=== PATIENT | female | born 1995 | race Caucasian/White ===

== ENCOUNTER 2017-10-19 10:01 | Emergency (ER) | payer OTHER ==
[2017-10-19 10:43] VITALS: BP 118/85
--- NOTE | 2017-10-19 11:23 | UC ---
Upper Extremity HPI - HPI Summary HPI Summary: Patient is a R handed F who presents to the with CC of R ulnar neuropathy from a golfer's elbow flare up x 2 days. She endorses numbness, tingling and temperature changes to the fourth and fifth fingers on the ipsilateral hand. Denies color changes. The neuropathy is intermittent and worse with overuse. She has been using the arm more frequently lifting heavy objects. Hx of JRA and flare ups usually require steroid. She has been seen by Dr. Renteria in rheumatology but last visit was 3 years ago. She has also been seen by Dr. Sheffield. Denies other symptoms. Full ROM without pain. - History of Current Complaint Chief Complaint: UCGeneralIllness Stated Complaint: FINGER NUMBNESS Time Seen by Provider: 10/19/17 10:59 Hx Obtained From: Patient Hx Last Menstrual Period: 10/17/17 ?: No Onset/Duration: Sudden Onset Severity Initially: Moderate Severity Currently: Moderate Pain Intensity: 6 Pain Scale Used: 0-10 Numeric Location Of Pain: Is Discrete @ - R fourth and fifth fingers Aggravating Factor(s): Lifting, Flexion, Extension Alleviating Factor(s): Nothing Associated Signs And Symptoms: Positive: Numbness/Tingling Related History: Dominant Hand Right - Risk Factors Non-Orthopedic Risk Factor: Negative DVT Risk Factors: Negative Septic Arthritis Risk Factor: Negative Compartment Syndrome Risk Factors: Paresthesias - Allergies/Home Medications Allergies/Adverse Reactions: Allergies Allergy/AdvReac Type Severity Reaction Status Date / Time codeine Allergy anaph Verified 10/19/17 10:39 PMH/Surg Hx/FS Hx/Imm Hx Previously Healthy: Yes - Surgical History Surgical History: Yes Surgery Procedure, Year, and Place: 2000 - hernia repair. 2012 Ganglion cyst removal; right wrist - Family History Known Family History: Positive: Hypertension - Social History Occupation: Employed Full-time Lives: With Family Alcohol Use: None Substance Use Type: None Smoking Status (MU): Former Smoker Type: Cigarettes Review of Systems Constitutional: Negative Eyes: Negative Respiratory: Negative Cardiovascular: Negative Motor: Negative Neurovascular: Decreased Sensation Neurological: Negative Psychological: Negative Is Patient Immunocompromised?: No All Other Systems Reviewed And Are Negative: Yes Physical Exam Triage Information Reviewed: Yes Appearance: Well-Appearing, Well-Nourished Vital Signs: Initial Vital Signs Temp 98 F 10/19/17 10:40 Pulse 87 10/19/17 10:40 Resp 16 10/19/17 10:40 BP 118/85 10/19/17 10:40 Pulse Ox 100 10/19/17 10:40 Vital Signs Reviewed: Yes Eye Exam: Normal Eyes: Positive: Conjunctiva Clear Neck exam: Normal Neck: Positive: Supple, No Lymphadenopathy Respiratory Exam: Normal Respiratory: Positive: Chest non-tender, Lungs clear Cardiovascular Exam: Normal Cardiovascular: Positive: RRR, No Murmur Musculoskeletal: Positive: Strength Intact, ROM Intact, No Edema Neurological: Positive: Other: - parethesia in fourth and fifth fingers on the R hand Psychological: Positive: Normal Response To Family Skin Exam: Normal Upper Extremity Course/Dx - Course Course Of Treatment: During the course of treatment, patient is evaluated for JRA flare and medial epicondylitis. She is referred back to her travel registered nurse oncology and Dr. Sheffield in orthopedics. She is given taper of prednisone and note for work. Encouraged golfer's elbow brace. She is Ok with plan and discharge at this time. - Differential Dx/Diagnosis Differential Diagnosis/HQI/PQRI: Strain, Sprain Provider Diagnoses: Medial Epicondylitis Discharge - Discharge Plan Condition: Stable Disposition: HOME Prescriptions: predniSONE TAB* [Deltasone TAB*] 10 mg PO DAILY #21 tab Patient Education Materials: Tennis Elbow (ED) Forms: *Work Release Referrals: Michael Renteria MD [Medical Doctor] - No Primary Care Phys,NOPCP [Primary Care Provider] - Edwin Ramos MD [Medical Doctor] - Jodie Sheffield MD [Medical Doctor] - Additional Instructions: Medial epicondylitis I have given you information - you have GOLFER'S ELBOW most likely from the JRA with an acute flare up from recent overuse. Prednisone Taper: Take 4 tabs on day 1 and 2, 3 tabs on day 3 and 4, 2 tabs on day 5 and 6 and 1 tab until gone Follow up with Dr. Ramos or Dr. Renteria and Dr. Sheffield
== END 2017-10-19 11:41 | disposition home or self-care (01) ==
LOC: UCEAST 10:01
DX: M77.01 Medial epicondylitis, right elbow (principal); Z88.5 Allergy status to narcotic agent; Z87.891 Personal history of nicotine dependence
CPT/HCPCS: 99211; G0463

== ENCOUNTER 2017-12-29 10:19 | Emergency (ER) | payer OTHER ==
[2017-12-29 10:29] VITALS: BP 131/82
--- NOTE | 2017-12-29 12:08 | UC ---
UC General HPI - HPI Summary HPI Summary: Patient presents with dad and step mom complaining of left sided numbness and tingling. States that last night before bed the left side of her face felt numb but she ignored it and went to sleep. Upon waking this morning the left facial numbness was persistent and she also noticed some numbness and tingling in her left arm and left leg. She has some mild numbness of the right hand is now resolved. She has been having 2 weeks of headaches, dizziness and significant nausea and vomiting daily. She saw her PCP who 1 week ago put her on the NuvaRing to determine if she had a hormonal imbalance. She is also concerned about pseudotumor and possibly Lyme. She denies any possibility of . No urinary symptoms. No diagnosed history of anxiety. She has a long standing history of rheumatoid arthritis diagnosed as a toddler. Not currently on any daily medications. Takes meloxicam from time to time. Is also currently being evaluated by Dr. Quezada for a left eye blurry vision. 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 - History of Current Complaint Chief Complaint: UCUpperExtremity Stated Complaint: NUMBNESS ON LEFT SIDE OF BODY Time Seen by Provider: 12/29/17 11:24 Hx Obtained From: Patient, Family/Twister Frame Tender - DAD AND STEPMOM Hx Last Menstrual Period: 12/19/17 Onset/Duration: Sudden Onset, Lasting Days - 1 DAY, Still Present Timing: Constant Onset Severity: Moderate Current Severity: Moderate Pain Intensity: 0 - Allergy/Home Medications Allergies/Adverse Reactions: Allergies Allergy/AdvReac Type Severity Reaction Status Date / Time codeine Allergy anaph Verified 10/19/17 10:39 PMH/Surg Hx/FS Hx/Imm Hx - Additional Past Medical History Additional PMH: RHEUMATOID ARTHRITIS - Surgical History Surgical History: Yes Surgery Procedure, Year, and Place: 2000 - hernia repair. 2012 Ganglion cyst removal; right wrist - Family History Known Family History: Positive: Hypertension, Diabetes - Social History Alcohol Use: None Substance Use Type: None Smoking Status (MU): Former Smoker Type: Cigarettes Review of Systems Constitutional: Negative Eyes: Blurred Vision ENT: Negative Respiratory: Negative Cardiovascular: Negative Gastrointestinal: Vomiting, Nausea Genitourinary: Negative Neurological: Headache Psychological: Anxious All Other Systems Reviewed And Are Negative: Yes Physical Exam Triage Information Reviewed: Yes Appearance: Well-Appearing, No Pain Distress, Well-Nourished Vital Signs: Initial Vital Signs Temp 99.8 F 12/29/17 10:23 Pulse 126 12/29/17 10:23 Resp 18 12/29/17 10:23 BP 131/82 12/29/17 10:23 Pulse Ox 100 12/29/17 10:23 Vital Signs Reviewed: Yes Eyes: Positive: Conjunctiva Clear, Other: - PERRL, EOMI. Negative: Discharge ENT: Positive: Hearing grossly normal, Pharynx normal, TMs normal Neck: Positive: Supple, Nontender, No Lymphadenopathy Respiratory Exam: Normal Cardiovascular: Positive: Tachycardia Abdomen Description: Positive: Nontender, Soft Musculoskeletal: Positive: No Edema Neurological: Positive: Alert, Other: - CN II-XII GROSSLY INTACT BILATERALLY. NEG PRONATOR DRIFT. FINGER TO NOSE INTACT BILATERALLY. HEEL TO MELARA INTACT BILATERALLY. RAPID ALTERNATING MVMTS INTACT. 5/5 STRENGTH Psychological: Positive: Normal Response To Family, Age Appropriate Behavior, Other: - ANXIOUS Skin: Negative: rashes Diagnostics - EKG Cardiac Rate: Tachycardia - 113BPM Cardiac Rhythm: Sinus: Normal Ectopy: None ST Segment: Normal Course/Dx - Course Course Of Treatment: Unclear etiology of patient's symptoms today. CVA is possible but certainly suspicion is low. Given patient's level of anxiety it is also possible that her symptoms are related to this however a more thorough workup is warranted. She is agreeable to transfer to the [facility] via private car. - Differential Dx - Multi-Symptom Provider Diagnoses: 1. PARESTHESIAS. 2. TACHYCARDIA - Physician Notifications Discussed Patient Care With: Jamison Moran - TO [facility] BY PRIVATE CAR Time Discussed With Above Provider: 12:14 Instructed by Provider To: MD Will See In ED Discharge - Sign-Out/Discharge Documenting (check all that apply): Discharge - Discharge Plan Condition: Stable Disposition: HOME Patient Education Materials: Paresthesia (ED), Tachycardia (ED) Referrals: Eunice Chiu, SPINE SPECIALIST [Nurse Practitioner] - Additional Instructions: Unclear etiology of your symptoms today. Go directly to the [facility] from here for further evaluation. - Billing Disposition and Condition Condition: STABLE Disposition: HOME
== END 2017-12-29 12:22 | disposition home or self-care (01) ==
LOC: UCEAST 10:19
DX: R20.2 Paresthesia of skin (principal); R00.0 Tachycardia, unspecified; M06.9 Rheumatoid arthritis, unspecified; H53.8 Other visual disturbances; R11.2 Nausea with vomiting, unspecified; R51 Headache; F41.9 Anxiety disorder, unspecified; Z88.5 Allergy status to narcotic agent; Z87.891 Personal history of nicotine dependence
CPT/HCPCS: 93005; 99211; G0463

== ENCOUNTER 2017-12-29 12:46 | Emergency (ER) | payer OTHER ==
--- NOTE | 2017-12-29 14:18 | ED ---
Neurological HPI - HPI Summary HPI Summary: Patient is a 22-year-old female who presents to emergency department for evaluation of paresthesias to the left side of her body that started last evening. Patient states he for she went to sleep she noticed decreased sensation to the left side of her face and hand. She had no associated symptoms of headache at time, visual disturbances. Today she still has some mild sensation of paresthesias to left hand and left face. Past medical history of juvenile rheumatoid arthritis, asthma, iron deficiency. Patient also notes she is currently being worked up for nausea and vomiting. Denies bites or rashes. Patient also notes that she is following with her ship mate for a dilated left pupil that occurs when she wakes up. Symptoms are moderate in severity. No current modifying factors. - History of Current Complaint Chief Complaint: EDNeurologicalDeficit Stated Complaint: PARTIAL NUMBNESS LT SIDE Time Seen by Provider: 12/29/17 13:57 Hx Obtained From: Patient Hx Last Menstrual Period: 12/19/17 Pain Intensity: 0 - Allergy/Home Medications Allergies/Adverse Reactions: Allergies Allergy/AdvReac Type Severity Reaction Status Date / Time codeine Allergy anaph Verified 12/29/17 14:02 Home Medications: Home Medications Nuva Ring 1 vag ring VAGINAL MONTHLY 12/29/17 [History Confirmed 12/29/17] PMH/Surg Hx/FS Hx/Imm Hx Previously Healthy: Yes Endocrine/Hematology History: Denies: Hx Diabetes, Hx Thyroid Disease Cardiovascular History: Denies: Hx Hypertension Respiratory History: Denies: Hx Asthma, Hx Chronic Obstructive Pulmonary Disease (COPD) GI History: Denies: Hx Ulcer - Cancer History Cancer Type, Location and Year: arthritis - Surgical History Surgery Procedure, Year, and Place: 2000 - hernia repair. 2012 Ganglion cyst removal; right wrist Infectious Disease History: No Infectious Disease History: Denies: Hx Hepatitis, Hx Human Immunodeficiency Virus (HIV), History Other Infectious Disease, Traveled Outside the [place] in Last 30 Days - Family History Known Family History: Positive: Hypertension, Diabetes - Social History Occupation: Student Lives: Dormitory/Roommates Alcohol Use: None Substance Use Type: Reports: None Smoking Status (MU): Former Smoker Type: Cigarettes Review of Systems Constitutional: Negative Negative: Fever, Chills Negative: Photophobia, Blurred Vision ENT: Negative Cardiovascular: Negative Negative: Palpitations, Chest Pain Respiratory: Negative Negative: Shortness Of Breath, Cough Positive: Vomiting, Nausea Genitourinary: Negative Musculoskeletal: Negative Skin: Negative Negative: Rash Positive: Paresthesia - left hand and left side of face All Other Systems Reviewed And Are Negative: Yes Physical Exam Triage Information Reviewed: Yes Vital Signs On Initial Exam: Initial Vitals Temp Pulse Resp BP Pulse Ox 97.8 F 111 20 147/77 99 12/29/17 12:54 12/29/17 12:54 12/29/17 12:54 12/29/17 12:54 12/29/17 12:54 Vital Signs Reviewed: Yes Appearance: Positive: Well-Appearing - Patient sitting up in bed in no acute distress. Talkative. Family member present. Skin: Positive: Warm, Dry Head/Face: Positive: Normal Head/Face Inspection Eyes: Positive: Normal, EOMI, SARANYA ENT: Positive: Normal ENT inspection, Pharynx normal, TMs normal. Negative: Tonsillar swelling, Tonsillar exudate Neck: Positive: Supple Respiratory/Lung Sounds: Positive: Clear to Auscultation, Breath Sounds Present Cardiovascular: Positive: Normal, RRR Abdomen Description: Positive: Nontender, Soft Neurological: Positive: Normal, CN Intact II-III, Speech Normal, Other - Normal facial symmetry. Slight decrease in sensation to the left forehead. 5 out of 5 strength bilateral upper and lower extremities.. Negative: Receptive Aphasia , Expressive Aphasia, Disoriented, EOM Palsy, Facial Droop, Focal Deficit @, Slurred Speech, Ataxic Gait, Facial Symmetry Diagnostics - Vital Signs Vital Signs Temp Pulse Resp BP Pulse Ox 12/29/17 12:54 97.8 F 111 20 147/77 99 - Laboratory Result Diagrams: 12/29/17 14:30 12/29/17 14:30 Lab Statement: Any lab studies that have been ordered have been reviewed, and results considered in the medical decision making process. Course/Dx - Course Course Of Treatment: Patient presenting for evaluation of mild paresthesias to left side of face and hand that started last evening. She is afebrile. Heart rate mildly elevated. She is no focal neurological deficits on exam. Will obtain basic labs and brain CT for further evaluation. Labs are unremarkable. Brain CT is negative for acute findings, reading per radiology. Results were discussed with pt. She appears very anxious and has numerous questions. Suspect a component of underlying stress/anxiety. Recommend pt. call her PCP and neurology today to schedule f.u apts. To return to ER if symptoms change or worsen. Pt. understands and agrees with plan. - Differential Dx Differential Diagnoses Neuro: Positive: Anxiety, Cephalgia, Headache, Intracranial Bleed, Migraine - Diagnoses Provider Diagnoses: Paresthesia Discharge - Sign-Out/Discharge Documenting (check all that apply): Discharge - Discharge Plan Condition: Good Disposition: HOME Patient Education Materials: Paresthesia (ED) Forms: *Work Release Referrals: Eunice Chiu NP [Primary Care Provider] - Jeremy Cabral MD [Medical Doctor] - Additional Instructions: Schedule a follow up appointment with your PCP and neurology Return to ER if symptoms change or worsen - Billing Disposition and Condition Condition: GOOD Disposition: HOME
--- NOTE | 2017-12-29 14:37 | RAD ---
INDICATION: Paresthesias. COMPARISON: There are no prior studies available for comparison. TECHNIQUE: Contiguous axial sections of the brain were obtained from the skull base to the vertex without contrast. FINDINGS: The ventricles, cisterns and sulci are within normal limits. No significant focal abnormality or mass effect is seen. There is no evidence for hemorrhage. No significant focal osseous abnormality is seen. The visualized portion of the paranasal sinuses and mastoid air cells appear clear. IMPRESSION: NO EVIDENCE FOR ACUTE INTRACRANIAL ABNORMALITY.
[2017-12-29 14:51] LABS: ABS Basophils 0 10^3/ul (0-0.2); ABS Eosinophils 0 10^3/ul (0-0.6); ABS Lymphocytes 0.7 10^3/ul (1.0-4.8); ABS Monocytes 0.3 10^3/ul (0-0.8); ABS Neutrophils 3.3 10^3/ul (1.5-7.7); ABS Nucleated RBC 0 10^3/ul; Eosinophil % 0.2 % (0-6); Hematocrit 42 % (35-47); Hemoglobin 14.4 g/dl (12.0-16.0); Lymphocyte % 16.9 % (25-47); Mean Corpuscular HGB Conc 35 g/dl (31-36); Mean Corpuscular Hemoglobin 31 pg (27-31); Mean Corpuscular Volume 88 fL (80-97); Mean Platelet Volume 8.9 um3 (7.4-10.4); Nucleated Red Blood Cells % 0.1; Platelet Count 198 10^3/ul (150-450); Red Blood Count 4.71 10^6/ul (4.0-5.4); Red Cell Distribution Width 13 % (10.5-15); White Blood Count 4.4 10^3/ul (3.5-10.8)
[2017-12-29 15:10] LABS: EGFR Non-African American 97.3 (>60)
[2017-12-29 15:44] VITALS: BP 124/76
== END 2017-12-29 15:43 | disposition home or self-care (01) ==
LOC: ED 12:46
DX: R20.2 Paresthesia of skin (principal); R11.2 Nausea with vomiting, unspecified; Z87.891 Personal history of nicotine dependence
CPT/HCPCS: 36415; 70450; 80053; 83735; 84702; 85025; 86617; 99283

== ENCOUNTER 2018-04-27 15:59 | Emergency (ER) | payer OTHER ==
--- NOTE | 2018-04-27 16:15 | UC ---
Lower Extremity/Ankle HPI - HPI Summary HPI Summary: The pt is a 22 y/o female with a PMHX of juvenile RA presenting to c/o intermittent bilateral UE and LE pain since 1 week ago. She notes swelling in the UE and LE , coldness to touch and undiagnosed panic attacks (a side effect of Prednisone medication). She denies fevers, and chills. Her Software Technical Lead, Dr. Ramos is in [place] and the pt has an appointment with him on 05/05/2018. This is scribe Josefa Wood documenting for attending Dr. Pa. I, Dr. Pa , personally performed the services described in this documentation as scribed in my presence and it is both accurate and complete. - History of Current Complaint Stated Complaint: HAND AND LEG PAIN Time Seen by Provider: 04/27/18 16:05 Hx Obtained From: Patient Hx Last Menstrual Period: 12/19/17 Onset/Duration: Lasting Weeks - 1 week, Still Present - Allergies/Home Medications Allergies/Adverse Reactions: Allergies Allergy/AdvReac Type Severity Reaction Status Date / Time codeine Allergy Anaphylatic Verified 04/27/18 16:15 Shock PMH/Surg Hx/FS Hx/Imm Hx Previously Healthy: No - PMhx of Juvenile RA - Surgical History Surgical History: Yes Surgery Procedure, Year, and Place: 2000 - hernia repair. 2012 Ganglion cyst removal; right wrist - Family History Known Family History: Positive: Hypertension, Diabetes - Social History Occupation: Unemployed Alcohol Use: None Substance Use Type: None Smoking Status (MU): Former Smoker Type: Cigarettes Review of Systems Constitutional: Negative - Fevers, chills Skin: Other - Positive : Coldness to touch Musculoskeletal: Edema - UE And LE, Other: - Positive: Pain in the UE and LE Neurological: Other - Positive: Undiagnosed panic attacks (side effect of Prednisone) All Other Systems Reviewed And Are Negative: Yes Physical Exam - Summary Physical Exam Summary: General: well-appearing, no pain distress Skin: warm, color reflects adequate perfusion, dry Head: normal Eyes: EOMI, SARANYA ENT: normal Neck: supple, nontender Respiratory: CTA, breath sounds present Cardiovascular: RRR Abdomen: soft, nontender Bowel: present Musculoskeletal: Swelling on both elbows, worse on the R ; strength/ROM intact , Normal capillary refill , Normal pulses, Normal sensation Neurological: sensory/motor intact, A&O x3 Psychological: affect/mood appropriate Triage Information Reviewed: Yes Vital Signs: Vital Signs: Temp Pulse Resp BP Pulse Ox 98.9 F 95 16 117/75 99 04/27/18 16:15 04/27/18 16:15 04/27/18 16:15 04/27/18 16:15 04/27/18 16:15 Vital Signs Reviewed: Yes Lower Extremity Course/Dx - Course Course Of Treatment: APPEARS TO BE A JRA EXACERBATION. PATIENT HAS F/U SCHEDULED WITH DR RAMOS NEXT WEEK. RECHECK SOONER IF WORSE. - Differential Dx/Diagnosis Provider Diagnoses: B/L ELBOW AND KNEE PAIN. JUVENILE RHEUMATOID ARTHRITIS. PARESTHESIAS Discharge - Sign-Out/Discharge Documenting (check all that apply): Patient Departure - Discharge Plan Condition: Stable Disposition: HOME Prescriptions: predniSONE TAB* [Deltasone 10 MG TAB*] 10 mg PO DAILY #24 tab Patient Education Materials: Juvenile Arthritis (ED), Paresthesia (ED) Referrals: Eunice Chiu NP [Primary Care Provider] - Edwin Ramos MD [Medical Doctor] - Additional Instructions: FOLLOW UP WITH DR RAMOS. GET RECHECKED FOR ANY WORSENING OF YOUR CONDITION OR QUESTIONS OR CONCERNS. - Billing Disposition and Condition Condition: STABLE Disposition: Home
[2018-04-27 16:18] VITALS: BP 117/75
== END 2018-04-27 16:25 | disposition home or self-care (01) ==
LOC: UCEAST 15:59
DX: M25.522 Pain in left elbow (principal); M25.521 Pain in right elbow; M25.562 Pain in left knee; M25.561 Pain in right knee; M08.00 Unspecified juvenile rheumatoid arthritis of unspecified site; Z88.5 Allergy status to narcotic agent; Z87.891 Personal history of nicotine dependence
CPT/HCPCS: 99212; G0463

== ENCOUNTER 2018-09-11 12:51 | Emergency (ER) | payer OTHER ==
--- OUTSIDE RECORDS SUMMARY | 2018-09-11 12:56 | XMS REPORT | Continuity of Care Document ---
:1995 External Reference #:[id number] Author Name Jennifer Guajardo Care Team Providers Name Role Phone Patient's Choice Primary Care Physician Unavailable Payers Type Date Identification Numbers Payment Provider Subscriber Policy Number: [id number] [employer] Don Delacruz PayID: [id number] [place] [address] Advance Directives Description No Information Available Problems Description No Information Family History Date Family Member(s) Problem(s) Comments General No Current Problems Father Heart Murmur Mother Psoriasis Social History Type Date Description Comments Sex Unknown Lives With 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 for 1 week then 1 twice daily ongoing Meloxicam 08/09 Active Tablets 7.5mg 30tab Take one M08.421 s capsule/tablet Richard, daily by mouth M.D. as needed for pain/ inflammation Prednisone 05/05 Active Tablets 10mg 30tab Take one s capsule/tablet Richard, daily by mouth M.D. as needed for a flare of Ra Proair HFA Active Aerosol 108(90Bas 1unit 2 puffs po q4h Unknown /0000 e) mcg/ac s prn Peppermint Oil Active Oil as needed Unknown Enbrel 02/22 Hx Solution 50mg/ml 3.92u inject M08.421 Auto-Inje nits subcutaneously Richard, - ct 50mg every week M.D. 08/09 8Enbrel 02/17 Hx Solution 50mg/ml 3.92u inject M08.421 Edwin Auto-Inje nits subcutaneously Richard, - ct 50mg every week M.D. 02/22 Leflunomide Hx Tablets 20mg 30tab 1 po qd Unknown s - 02/17 Meloxicam Hx Tablets 7.5mg 30tab 1 po qd Unknown s - 02/17 Medications Administered in Office Medication Date Status Form Strength Qnty SIG Indications Ordering Provider PPD Administered Injection Edwin Ramos M.D. Celestone 3 mg Administered Injection Madie and 3mg 012 Kathia bishop M.D. Celestone 3 mg Administered Injection Madie and 3mg 012 Kathia bishop M.D. Celestone 3 mg Administered Injection Madie and 3mg 012 Kathia bishop M.D. Celestone 3 mg Administered Injection Madie and 3mg 012 Kathia bishop M.D. Immunizations Description No Information Available Vital Signs Date Vital Result Comment 08/09/2018 3:48pm Height 62 inches 5'2" Weight 124.00 lb Heart Rate 88 /min BP Systolic 108 mmHg BP Diastolic 74 mmHg Pain Level 1 O2 % BldC Oximetry 98 % BMI (Body Mass Index) 22.7 kg/m2 05/05/2018 3:43pm Height 62 inches 5'2" Weight 118.00 lb Heart Rate 77 /min BP Systolic Sitting 108 mmHg BP Diastolic Sitting 71 mmHg Respiratory Rate 14 /min Pain Level 5 BMI (Body Mass Index) 21.6 kg/m2 02/17/2018 1:59pm Height 62 inches 5'2" Weight 117.12 lb Heart Rate 84 /min BP Systolic Sitting 108 mmHg BP Diastolic Sitting 78 mmHg Respiratory Rate 14 /min Pain Level 0 BMI (Body Mass Index) 21.4 kg/m2 10/22/2017 2:47pm Height 62 inches 5'2" Weight 115.00 lb Heart Rate 80 /min BP Systolic 110 mmHg BP Diastolic 64 mmHg Respiratory Rate 16 /min Body Temperature 98.7 F Pain Level 7 BMI (Body Mass Index) 21.0 kg/m2 12/18/2011 3:13pm Height 62 inches 5'2" Heart Rate 68 /min BP Systolic Sitting 114 mmHg BP Diastolic Sitting 70 mmHg Blood Pressure Percentile 0 % Height Percentile 19 % 11/18/2011 2:09pm Height 62 inches 5'2" Weight 108.50 lb Heart Rate 70 /min BP Systolic Sitting 114 mmHg BP Diastolic Sitting 71 mmHg BMI (Body Mass Index) 19.8 kg/m2 Blood Pressure Percentile 0 % Height Percentile 19 % Weight Percentile 19th Results Description No Information Available Procedures Date Code Description Status 10/20/2011 81560 Rad Exam; Ankle Comp Completed 10/20/2011 23499 Rad Exam; Ankle Comp Completed 09/30/2011 48139 Inject/Drain Joint/Bursa Intermediate W/O US Completed 09/16/2011 53798 Rad Exam; Elbow, Limited Completed 09/16/2011 79036 Rad Exam; Elbow, Limited Completed 09/16/201111338 Inject/Drain Joint/Bursa Intermediate W/O US Completed Encounters Type Date Location Provider Dx Diagnosis Office Visit 08/09/2018 Rheumatology Gopi Wagner8.421 Pauciarticular 3: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 juvenile rheumatoid arthritis, right elbow Z79.899 Other intermediate school teacher (current) drug therapy Office Visit 02/17/2018 Rheumatology Edwin Nguyễn8.421 Pauciarticular 2:00p Services Of Brian Ramos M.D. 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 Pauciarticular Office Visit 10/20/2011 Orthopedic Driss 714.32 Rheumatoid Arthritis 3:30p Services Of Jared Szymanski C.M.A. Pauciarticular Office Visit 09/30/2011 Orthopedic Madie 714.32 Rheumatoid Arthritis 8:00a Services Of Linnette Johnson C.M.A., M.D. Pauciarticular 727.09 Synovitis & Tenosynovitis Other 719.02 Effusion Joint Upper Arm Office 09/16/2011 Orthopedic Madie 714.32 Rheumatoid Visit 11:00a Services Of Jared Johnson Arthritis Juvenile C.M.A. Pauciarticular 727.09 Synovitis & Tenosynovitis Other Plan of Treatment Future Appointment(s):09/21/2018 3:40 pm - Edwin Ramos M.D. at [facility]08/09/2018 - Edwin Ramos M.D.M08.421 Pauciarticular juvenile rheumatoid arthritis, right elbowNew Medication:Sulfasalazine 500 mg - take one capsule/tablet daily by mouth for 1 week then 1 twice daily ongoingMeloxicam 7.5 mg - Take one capsule/tablet daily by mouth as needed for pain/ inflammationNew Labs:Erythrocyte Sed Rate, Ordered: 08/09/18C Reactive Protein, Ordered: 08/09/18ollow up:Follow up in 6 weeks or sooner if gupcxfH35.899 Other intermediate school teacher (current) drug therapyNew Labs:CBC Auto Diff, Ordered: Comp Metabolic Panel, Ordered: 08/09/18M25.421 Effusion, right elbow
[2018-09-11 13:01] VITALS: BP 107/68
--- NOTE | 2018-09-11 13:16 | UC ---
Dental HPI - HPI Summary HPI Summary: 23-year-old woman comes to clinic today with a chief complaint of tooth pain and left facial swelling. The left molar tooth pain is been going on for about a week and she's recently noticed some swelling on the left side of the face. Been feeling slightly ill is wondering if she has a dental infection. She did have some left ear pain but that's better now. No rhinorrhea no difficulty swallowing no cough or chest congestion. - History of Current Complaint Chief Complaint: UCDentalProblem Stated Complaint: DENTAL COMPLAINT Time Seen by Provider: 09/11/18 13:08 Hx Last Menstrual Period: 075168 Pain Intensity: 4 - Allergies/Home Medications Allergies/Adverse Reactions: Allergies Allergy/AdvReac Type Severity Reaction Status Date / Time codeine Allergy Anaphylatic Verified 09/11/18 13:01 Shock Home Medications: Home Medications Meloxicam(NF) [Mobic(NF)] 15 mg PO DAILY PRN 09/11/18 [History Confirmed ] PMH/Surg Hx/FS Hx/Imm Hx Previously Healthy: Yes - Surgical History Surgical History: Yes Surgery Procedure, Year, and Place: 2000 - hernia repair. 2012 Ganglion cyst removal; right wrist - Family History Known Family History: Positive: Hypertension, Diabetes - Social History Alcohol Use: Occasionally Substance Use Type: Marijuana Substance Use Comment - Amount & Last Used: daily Smoking Status (MU): Heavy Every Day Tobacco Smoker Type: Cigarettes Review of Systems All Other Systems Reviewed And Are Negative: Yes Constitutional: Positive: Negative Skin: Positive: Negative Eyes: Positive: Negative ENT: Positive: Dental Pain, Ear Ache. Negative: Sinus Congestion Respiratory: Positive: Negative Cardiovascular: Positive: Negative Gastrointestinal: Positive: Negative Motor: Positive: Negative Neurovascular: Positive: Negative Musculoskeletal: Positive: Negative Neurological: Positive: Negative Psychological: Positive: Negative Is Patient Immunocompromised?: No Physical Exam Triage Information Reviewed: Yes Appearance: Well-Appearing, No Pain Distress, Well-Nourished Vital Signs: Initial Vital Signs Temp 98.2 F 09/11/18 12:57 Pulse 98 09/11/18 12:57 Resp 16 09/11/18 12:57 BP 107/68 09/11/18 12:57 Pulse Ox 99 09/11/18 12:57 Vital Signs Reviewed: Yes Eye Exam: Normal Eyes: Positive: Conjunctiva Clear ENT: Positive: Pharynx normal, TMs normal. Negative: Nasal congestion, Nasal drainage Dental: Positive: Other: - LEFT MOLAR CAVITY Neck exam: Normal Neck: Positive: Supple, Other: - MINIMAL SWELLING BELOW ANGLE OF LEFT JAW Respiratory: Positive: Lungs clear, Normal breath sounds, No respiratory distress Cardiovascular: Positive: RRR Musculoskeletal Exam: Normal Musculoskeletal: Positive: Strength Intact, ROM Intact Neurological Exam: Normal Neurological: Positive: Alert, Muscle Tone Normal Psychological Exam: Normal Psychological: Positive: Age Appropriate Behavior Skin Exam: Normal Dental Complaint Course/Dx - Differential Dx/Diagnosis Provider Diagnosis: Tooth ache Discharge - Sign-Out/Discharge Documenting (check all that apply): Patient Departure All imaging exams completed and their final reports reviewed: No Studies - Discharge Plan Condition: Stable Disposition: HOME Prescriptions: Amoxicillin PO (*) [Amoxicillin 875 MG (*)] 875 mg PO BID #20 tab Patient Education Materials: Toothache (ED) Referrals: Eunice Chiu, [employer] [Primary Care Provider] - Additional Instructions: FOLLOW UP WITH YOUR DENTIST OR PRIMARY CARE DOCTOR IF NOT COMPLETELY IMPROVED. GET RECHECKED FOR ANY WORSENING OF YOUR CONDITION OR QUESTIONS OR CONCERNS. - Billing Disposition and Condition Condition: STABLE Disposition: Home
== END 2018-09-11 13:23 | disposition home or self-care (01) ==
LOC: UCEAST 12:51
DX: K08.89 Other specified disorders of teeth and supporting structures (principal); F17.210 Nicotine dependence, cigarettes, uncomplicated; Z88.5 Allergy status to narcotic agent
CPT/HCPCS: 99212; G0463

== ENCOUNTER 2019-03-31 09:25 | Emergency (ER) | payer OTHER ==
[2019-03-31 09:39] VITALS: BP 101/61
--- NOTE | 2019-03-31 10:20 | UC ---
Throat Pain/Nasal Alek HPI - HPI Summary HPI Summary: 23-year-old female who has had a swollen left tonsillar node since January and states that today her left ear started hurting. She also states that she has occasional mild discomfort on her left lower molars. - History of Current Complaint Chief Complaint: UCGeneralIllness Stated Complaint: SORE THROAT, AND EAR ACHE Time Seen by Provider: 03/31/19 10:19 Hx Obtained From: Patient Hx Last Menstrual Period: 03/14/19 ?: No Onset/Duration: Gradual Onset, Lasting Weeks - Since January the patient has had waxing and waning of left tonsillar lymph node enlargement. No recent Scratches. No recent illness. Severity: Mild Pain Intensity: 6 Cough: None Associated Signs & Symptoms: Positive: Negative Related History: Seasonal Allergies - Allergies/Home Medications Allergies/Adverse Reactions: Allergies Allergy/AdvReac Type Severity Reaction Status Date / Time codeine Allergy Anaphylatic Verified 03/31/19 09:40 Shock Home Medications: Home Medications NK [No Home Medications Reported] 03/31/19 [History Confirmed 03/31/19] PMH/Surg Hx/FS Hx/Imm Hx Previously Healthy: Yes - Surgical History Surgical History: Yes Surgery Procedure, Year, and Place: 2000 - hernia repair. 2012 Ganglion cyst removal; right wrist - Family History Known Family History: Positive: Hypertension, Diabetes - Social History Alcohol Use: None Substance Use Type: Marijuana Substance Use Comment - Amount & Last Used: daily Smoking Status (MU): Former Smoker Type: Cigarettes Review of Systems All Other Systems Reviewed And Are Negative: Yes ENT: Positive: Ear Ache, Other - Patient states waxing and waning left tonsillar lymph node enlargement since January of this year. No recent illness. She does have seasonal allergies. She states today she had a mild left earache so she thought that was related. She has also had some intermittent left lower dental pain. Is Patient Immunocompromised?: No Physical Exam Triage Information Reviewed: Yes Appearance: Well-Appearing, No Pain Distress, Well-Nourished Vital Signs: Initial Vital Signs Temp 98 F 03/31/19 09:37 Pulse 70 03/31/19 09:37 Resp 16 03/31/19 09:37 BP 101/61 03/31/19 09:37 Pulse Ox 100 03/31/19 09:37 Vital Signs Reviewed: Yes Eyes: Positive: Conjunctiva Clear ENT: Positive: Hearing grossly normal, Pharynx normal, TMs normal, Uvula midline Dental Exam: Normal Dental: Positive: Other: - Gumline is pink, no evidence of abscess, teeth are in good condition. Neck: Positive: Supple, Nontender, No Lymphadenopathy - No lymph node enlargement today. Respiratory: Positive: Lungs clear, Normal breath sounds, No respiratory distress, No accessory muscle use Cardiovascular: Positive: RRR, No Murmur, Pulses Normal, Brisk Capillary Refill Abdomen Description: Positive: Nontender, No Organomegaly, Soft, Other: - No inguinal lymphadenopathy.. Negative: CVA Tenderness (R), CVA Tenderness (L) Bowel Sounds: Positive: Present Musculoskeletal Exam: Normal Neurological Exam: Normal Psychological Exam: Normal Skin Exam: Normal Throat Pain/Nasal Course/Dx - Course Course Of Treatment: Patient is comfortable here. Ear exam was normal as well as dental exam. I advised her to follow-up with the dentist if she continues to have the left lower jaw pain. At this point time I don't feel there is a need for antibiotics. - Differential Dx/Diagnosis Provider Diagnosis: Pain, dental Discharge - Sign-Out/Discharge Documenting (check all that apply): Patient Departure All imaging exams completed and their final reports reviewed: No Studies - Discharge Plan Condition: Good Disposition: HOME Patient Education Materials: Lymphadenopathy (ED) Referrals: Eunice Chiu SHEEP HERDER [Primary Care Provider] - Additional Instructions: If you have any worsening of the dental discomfort follow-up with your dentist for further care. - Billing Disposition and Condition Condition: GOOD Disposition: Home - Attestation Statements Provider Attestation: I was available for consult. This patient was seen by the HALIE. The patient was not presented to, seen by, or examined by me. -Regi
== END 2019-03-31 10:35 | disposition home or self-care (01) ==
LOC: UCEAST 09:25
DX: K08.89 Other specified disorders of teeth and supporting structures (principal); Z88.5 Allergy status to narcotic agent; Z87.891 Personal history of nicotine dependence
CPT/HCPCS: 99211; G0463

== ENCOUNTER 2020-01-07 13:27 | Emergency (ER) | payer OTHER ==
[2020-01-07 13:35] VITALS: BP 125/67
--- OUTSIDE RECORDS SUMMARY | 2020-01-07 13:35 | XMS REPORT | Continuity of Care Document ---
:1995 External Reference #:[id number] Author Name Zeke Finley MD [facility] Address [address] [place] [address] Problems Active Problems Provider Date Adult health examination Onset: 07/23/2016 Rheumatoid arthritis Onset: 03/02/2018 Asthma Jacklyn Kim DO Onset: 10/25/2019 Tobacco dependence syndrome Onset: 09/01/2018 Iritis Jacklyn Kim DO Onset: 10/25/2019 Anxiety Onset: 01/07/2018 Social History Type Date Description Comments Sex Unknown Tobacco Use Start: Unknown Heavy tobacco smoker (more than 10 cigarettes/day) Smoking Status Reviewed: 10/25/19 Heavy tobacco smoker (more than 10 cigarettes/day) Allergies, Adverse Reactions, Alerts Active Allergies Reaction Severity Comments Date Codeine Shock Severe 05/20/2019 Medications Active Medications SIG Qnty Indications Ordering Date Provider Proventil HFA Take 2 Puffs By 6.7Inhaler Jenae Xie, 12/02/2019 Mouth Every 4 108(90Base) mcg/Act Hours as Needed Aerosol Flovent HFA 2 puffs twice 13units Jenae Xie, 07/12/2018 daily inhalation 110mcg/Act Aerosol Meloxicam 1 Oral Unknown 12/22/2017 15mg Tablets Amoxicillin 1 by mouth three Unknown 500mg times a day Tablets Levalbuterol HCL Unknown 0.31mg/3ML Nebulizer Medications Administered in Office Medication SIG Qnty Indications Ordering Provider Date Meningococcal Conjugate Vaccine Unknown 02/13/2015 (Menveo) Injection Meningococcal Conjugate Vaccine Unknown 05/21/2010 (Menveo) Injection DTaP Vaccine Younger Than 7 Unknown 02/18/1999 (Infanrix) Injection DTaP Vaccine Younger Than 7 Unknown 01/24/1995 (Infanrix) Injection DTaP Vaccine Younger Than 7 Unknown 1994 (Infanrix) Injection DTaP Vaccine Younger Than 7 Unknown 1994 (Infanrix) Injection DTaP Vaccine Younger Than 7 Unknown 1994 (Infanrix) Injection Immunizations CPT Code Status Date Vaccine Lot # [id number] Given 05/21/2010 Flu < 65 years 14820 Given 08/16/2009 Flu < 65 years 88271 Given 08/01/2008 HPV Gardasil 9 11407 Given 08/01/2008 Hep A Adult for >18 yrs Havrix/Vaqta 01801 Given 03/28/2008 HPV Gardasil 9 96014 Given 01/25/2008 Tdap - Boostrix/Adacel 04487 Given 01/25/2008 HPV Gardasil 9 48014 Given 01/25/2008 Hep A Adult for >18 yrs Havrix/Vaqta 95713 Given 02/18/1999 Polio - Ipol 46241 Given 02/18/1999 MMR Vaccine 31081 Given 06/01/1995 MMR Vaccine 35526 Given 06/01/1995 Varicella (Chicken Pox) Vaccine 32717 Given 03/19/1995 Hep B 11-15yr, Recombivax 1.0ml dose only 26376 Given 01/24/1995 Hib ActiHib/Hiberix 37586 Given 1994 Polio - Ipol 39509 Given 1994 Hib ActiHib/Hiberix 76460 Given 1994 Polio - Ipol 16738 Given 1994 Hib ActiHib/Hiberix 30518 Given 1994 Hep B 11-15yr, Recombivax 1.0ml dose only 77200 Given 1994 Polio - Ipol 07346 Given 1994 Hib ActiHib/Hiberix 07466 Given 1994 Hep B 11-15yr, Recombivax 1.0ml dose only Vital Signs Date Vital Result Comment 12/07/2019 11:21am Height 62 inches 5'2" per patient Weight 129.00 lb per patient Body Temperature 97.3 F per patient BMI (Body Mass Index) 23.6 kg/m2 10/25/2019 10:52am BP Systolic 114 mmHg BP Diastolic 66 mmHg Weight 128.00 lb Heart Rate 125 /min Body Temperature 97.4 F O2 % BldC Oximetry 95 % Results Test Acquired Date Facility Test Result H/L Range Note CBC Auto 10/25/2019 [facility] White Blood 4.9 10^3/uL Normal 3.5-10.[address] [place] [address] [phone] Red Blood Count 4.76 10^6/uL Normal 3.70-4.87 Hemoglobin 14.8 g/dL Normal 12.0-16.0 Hematocrit 43 % Normal 35-47 Mean Corpuscular Volume 91 fL Normal 80-97 Mean Corpuscular Hemoglobin 31 pg Normal 27-31 Mean Corpuscular HGB Conc 34 g/dL Normal 31-36 Red Cell Distribution Width 13 % Normal 10-15 Platelet Count 214 10^3/uL Normal 150-450 Mean Platelet Volume 9.3 fL Normal 7.4-10.4 Abs Neutrophils 3.8 10^3/uL Normal 1.5-7.7 Abs Lymphocytes 0.7 10^3/uL Low 1.0-4.8 Abs Monocytes 0.3 10^3/uL Normal 0-0.8 Abs Eosinophils 0.0 10^3/uL Normal 0-0.6 Abs Basophils 0.0 10^3/uL Normal 0-0.2 Abs Nucleated RBC 0.0 10^3/uL Granulocyte % 77.1 % Lymphocyte % 15.2 % Monocyte % 6.2 % Eosinophil % 1.0 % Basophil % 0.5 % Nucleated Red Blood Cells % 0.0 Laboratory test 10/25/2019 [facility] C Reactive 3.24 mg/L Normal <8.[address] [place] [address] [phone] Erythrocyte Sed Rate 12 mm/Hr Normal 0-19 2 TSH (Thyroid Stim Horm) 1.04 mcIU/mL Normal 0.34-5.60 3 1 [id number] 2 [id number] 3 [id number] Procedures Date Code Description Status 12/07/2019 17978 Brief Emotional/Behav Assessment W/ Scoring Doc Per Completed [facility] 10/25/2019 72887 Brief Emotional/Behav Assessment W/ Scoring Doc Per Completed [facility] Medical Devices Description No Information Available Encounters Type Date Location Provider Dx Diagnosis Office Visit 12/07/2019 11:15a [facility] Sony Finley MD R06.2 Wheezing Z13.31 Encounter for screening for depression Office Visit 10/25/2019 10:45a [facility] Main Jacklyn Kim, DO R59.0 Localized enlarged lymph nodes R53.83 Other fatigue M25.512 Pain in left shoulder R51 Headache F41.1 Generalized anxiety disorder Z13.31 Encounter for screening for depression Assessments Date Code Description Provider 12/07/2019 R06.2 Wheezing Zeke Finley MD 12/07/2019 Z13.31 Encounter for screening for depression Zeke Finley MD 10/25/2019 R59.0 Localized enlarged lymph nodes Jacklyn Karbenson, DO 10/25/2019 R53.83 Other fatigue Jacklyn Karbenson, DO 10/25/2019 M25.512 Pain in left shoulder Jacklyn Yvesbenson, DO 10/25/2019 R51 Headache Jacklyncelia Welchjohn, DO 10/25/2019 F41.1 Generalized anxiety disorder Jacklyn Yvesbenson, DO 10/25/2019 Z13.31 Encounter for screening for depression Jacklyn Kim DO Plan of Treatment Future Appointment(s):03/02/2020 11:45 am - Jacklyn Kim DO at [facility] Main - HENRIQUE Esteves06.2 EtfvhaenF33.31 Encounter for screening for depression Functional Status Description No Information Available Mental Status Description No Information Available Referrals Description No Information Available
--- OUTSIDE RECORDS SUMMARY | 2020-01-07 13:35 | XMS REPORT | Continuity of Care Document ---
:1995 External Reference #:[id number] Author Name Zeke Finley MD Address [address] [place] [address] Problems Active Problems Provider Date Adult health [...] CPT Code Status Date Vaccine Lot # [id number] Given 05/21/2010 Flu < 65 years 86992 Given 08/16/2009 Flu < 65 years 51078 Given 08/01/2008 HPV Gardasil 9 46176 Given 08/01/2008 Hep A Adult for >18 yrs Havrix/Vaqta 52455 Given 03/28/2008 HPV Gardasil 9 79849 Given 01/25/2008 Tdap - Boostrix/Adacel 03673 Given 01/25/2008 HPV Gardasil 9 43176 Given 01/25/2008 Hep A Adult for >18 yrs Havrix/Vaqta 36102 Given 02/18/1999 Polio - Ipol 24660 Given 02/18/1999 MMR Vaccine 39062 Given 06/01/1995 MMR Vaccine 88634 Given 06/01/1995 Varicella (Chicken Pox) Vaccine 98810 Given 03/19/1995 Hep B 11-15yr, Recombivax 1.0ml dose only 19026 Given 01/24/1995 Hib ActiHib/Hiberix 73137 Given 1994 Polio - Ipol 03567 Given 1994 Hib ActiHib/Hiberix 96131 Given 1994 Polio - Ipol 33167 Given 1994 Hib ActiHib/Hiberix 34291 Given 1994 Hep B 11-15yr, Recombivax 1.0ml dose only 46767 Given 1994 Polio - Ipol 66581 Given 1994 Hib ActiHib/Hiberix 40703 Given 1994 Hep B 11-15yr, Recombivax 1.0ml [...] Result H/L Range Note CBC Auto 10/25/2019 [facility] White Blood 4.9 10^3/uL Normal 3.5-10.[address] [place] [address] [phone] Red Blood Count 4.76 10^6/uL Normal 3.70-4.87 [...] Blood Cells % 0.0 Laboratory test 10/25/2019 [facility] C Reactive 3.24 mg/L Normal <8.01 [address] [place] [address] [phone] Erythrocyte Sed Rate 12 mm/Hr Normal 0-19 2 TSH (Thyroid Stim Horm) 1.04 mcIU/mL Normal 0.34-5.60 3 1 [id number] 2 [id number] 3 [id number] Procedures Date Code Description Status 12/07/2019 39238 Brief Emotional/Behav Assessment W/ Scoring Doc Per Completed Standard Inst 10/25/2019 97724 Brief Emotional/Behav Assessment W/ Scoring Doc Per Completed Standard Inst Medical Devices Description No Information Available Encounters Type Date Location Provider Dx Diagnosis Office Visit 12/07/2019 [facility] Sony Finley MD R06.2 Wheezing 11:15a Office Visit 10/25/2019 [facility] Jacklyn Kim, DO R59.0 Localized enlarged 10:45a lymph nodes R53.83 Other fatigue M25.512 Pain in left shoulder R51 Headache F41.1 Generalized anxiety disorder Z13.31 Encounter for screening for depression Assessments Date Code Description Provider 12/07/2019 R06.2 Wheezing Zeke Finley MD 10/25/2019 R59.0 Localized enlarged lymph nodes Jacklyn Kim, DO 10/25/2019 R53.83 Other fatigue Jacklyn Kim, DO 10/25/2019 M25.512 Pain in left shoulder Jacklyncelia Kim, DO 10/25/2019 R51 Headache Jacklyn Kim, DO 10/25/2019 F41.1 Generalized anxiety disorder Jacklyn Kim, DO 10/25/2019 Z13.31 Encounter for screening for depression Jacklyn Kim, Plan of Treatment No Information Available Functional Status Description No Information Available Mental Status Description No Information Available Referrals Description No Information Available
[2020-01-07] MEDS ORDERED: Tetan/Diph/Pertus SYR(Tdap)* 0.5 ML SYR(BOOSTRIX) use SYR contains LATEX IM ONE (13:39)
[2020-01-07] MEDS ORDERED: Lidocaine 1% MPF ** 5 ML VIAL INJ ONE (13:39)
--- NOTE | 2020-01-07 13:44 | UC ---
Laceration HPI - HPI Summary HPI Summary: 24-year-old female presents with laceration to her right wrist. States that approximately 45 minutes prior to arrival she accidentally cut her wrist on unknown object while carrying some debris from her garden. Bleeding was controlled with direct pressure prior to arrival. Last tetanus unknown. Denies loss of ROM, numbness, or tingling. - History Of Current Complaint Chief Complaint: UCLaceration Stated Complaint: LACERATION TO WRIST Time Seen by Provider: 01/07/20 13:31 Hx Obtained From: Patient Hx Last Menstrual Period: 12/28/19 Pain Intensity: 2 - Allergies/Home Medications Allergies/Adverse Reactions: Allergies Allergy/AdvReac Type Severity Reaction Status Date / Time codeine Allergy Anaphylatic Verified 01/07/20 13:35 Shock Home Medications: Home Medications NK [No Home Medications Reported] 03/31/19 [History Confirmed 03/31/19] PMH/Surg Hx/FS Hx/Imm Hx Previously Healthy: Yes - Denies significant PMH - Surgical History Surgical History: Yes Surgery Procedure, Year, and Place: 2000 - hernia repair. 2011 Ganglion cyst removal; right wrist - Family History Known Family History: Positive: Hypertension, Diabetes - Social History Occupation: Employed Full-time Lives: Alone Alcohol Use: None Substance Use Type: Marijuana Substance Use Comment - Amount & Last Used: daily Smoking Status (MU): Former Smoker Type: Cigarettes Review of Systems All Other Systems Reviewed And Are Negative: Yes Constitutional: Negative: Fever, Chills Skin: Positive: Other - See HPI Respiratory: Positive: Negative Cardiovascular: Positive: Negative Gastrointestinal: Positive: Negative Genitourinary: Positive: Negative Motor: Negative: Weakness Neurovascular: Negative: Decreased Sensation Musculoskeletal: Negative: Decreased ROM Neurological/Mental Status: Positive: Negative Is Patient Immunocompromised?: No Physical Exam - Summary Physical Exam Summary: GENERAL APPEARANCE: Well developed, well nourished, alert and cooperative, and appears to be in no acute distress. CARDIAC: Normal S1 and S2. No S3, S4 or murmurs. Rhythm is regular. There is no peripheral edema, cyanosis or pallor. Extremities are warm and well perfused. Capillary refill is less than 2 seconds. Peripheral pulses intact. LUNGS: Clear to auscultation without rales, rhonchi, wheezing or diminished breath sounds. ABDOMEN: Positive bowel sounds. Soft, nondistended, nontender. No guarding or rebound. No masses or hepatosplenomegally. MUSKULOSKELETAL: ROM intact to all extremities. No joint erythema or tenderness. Normal muscular development. Normal gait. EXTREMITIES: Superficial, linear laceration approximately 1 cm in length with poorly approximated wound margins to the anterior right radial wrist with bleeding controlled. Circulation and sensation intact. SKIN: Skin normal color, texture and turgor. Triage Information Reviewed: Yes Vital Signs: Initial Vital Signs Temp 98.7 F 01/07/20 13:30 Pulse 100 01/07/20 13:30 Resp 16 01/07/20 13:30 BP 125/67 01/07/20 13:30 Pulse Ox 100 01/07/20 13:30 Vital Signs Reviewed: Yes Procedures - Procedure Summary Procedure Summary: Procedure note: Laceration repair right wrist Informed consent was obtained before procedure started and the appropriate timeout was taken. The wound was copiously irrigated by the RN prior to wound closure. The area was prepped with Betadine. Local anesthesia was achieved using 2 ml of lidocaine 1% without epinephrine. The wound margins were brought into good alignment and 3 interrupted sutures were placed using 5-0 Ethilon. Total length of wound after repair was 1 cm. Estimated blood loss was minimal. A dressing was applied to the area by the RN. Anticipatory guidance, as well as standard post-procedure care was discussed with patient. Return precautions are given. The patient tolerated the procedure well without complications. Patient is to follow up in 7-10 days for suture removal and evaluation of the laceration. Laceration Course/Dx - Course/Dx Course Of Treatment: 24-year-old female presents with laceration to her right wrist. States that approximately 45 minutes prior to arrival she accidentally cut her wrist on unknown object while carrying some debris from her garden. Bleeding was controlled with direct pressure prior to arrival. Last tetanus unknown. Denies loss of ROM, numbness, or tingling. Afebrile. Vital signs stable. Patient had a superficial, linear laceration approximately 1 cm in length with poorly approximated wound margins to the anterior right radial wrist with bleeding controlled. Circulation and sensation were intact. Her tetanus was updated. The wound was copiously irrigated by the RN prior to wound closure. Good anesthesia was achieved using 1% lidocaine without epi and the wound was closed with 3 interrupted sutures using 5-0 Ethilon. A dressing was applied by the RN. Wound care, anticipatory guidance, and warning symptoms were reviewed with the patient. Verbalized understanding and agreed with plan of care. - Differential Dx - Laceration/Wound Differental Diagnoses: Laceration, Tendon Laceration - Diagnosis Provider Diagnosis: Laceration of right wrist Discharge ED - Sign-Out/Discharge Documenting (check all that apply): Patient Departure All imaging exams completed and their final reports reviewed: No Studies - Discharge Plan Condition: Critical Disposition: HOME Patient Education Materials: Care For Your Stitches (ED), Laceration (ED) Referrals: Jacklyn Kim DO [Primary Care Provider] - Additional Instructions: Leave the dressing that was applied in the clinic in place for the next 24 hours. Be sure to keep it clean and dry. After 24 hours, you may remove the dressing and shower as normal. Do not submerge the wound under water to prevent infection. Clean the wound with a mild soap and water at least once a day. Apply some antibiotic ointment and cover with a bandage. This should be changed at least once a day or any time the dressing becomes wet or soiled. Use acetaminophen (Tylenol) or ibuprofen (Advil, Motrin) according to directions as needed for pain. Sutures will need to be removed in 7-10 days. You may return here or with your primary care provider to have this done. Your tetanus was updated today. Be sure to notify your primary care provider so they can update their records. Watch for signs of infection including fever greater than 100.5 F, severe pain not managed with pain medication, redness that spreads, swelling of the hand/ fingers, or pus draining from the wound. Seek immediate medical attention should any of these occur. - Billing Disposition and Condition Condition: CRITICAL Disposition: Home - Attestation Statements Provider Attestation: I was available for consult. This patient was seen by the HALIE. The patient was not presented to , seen by or examined by al -Bunny Hauser MD
== END 2020-01-07 14:12 | disposition home or self-care (01) ==
LOC: UCEAST 13:27
DX: S61.511A Laceration without foreign body of right wrist, initial encounter (principal); W26.9XXA Contact with unspecified sharp object(s), initial encounter; Y93.H2 Activity, gardening and landscaping; Y92.9 Unspecified place or not applicable; Z23 Encounter for immunization; Z88.5 Allergy status to narcotic agent; Z87.891 Personal history of nicotine dependence
CPT/HCPCS: 12001; 90471; 90715; 99211; G0463

== ENCOUNTER 2024-09-24 05:20 | Inpatient (IN) ==
[2024-09-24] MEDS ORDERED: Lidocaine 1% VIAL 10 MG/ML 30 ML VIAL INJ PRN (06:07)
[2024-09-24] MEDS: Lactated Ringers 1000 ml BAG 1,000 ML IV ONE ×2 (06:17→15:00)
[2024-09-24 06:27] LABS: ABS Eosinophils 0.1 10^3/uL (0.0-0.5); ABS Lymphocytes 1.3 10^3/uL (1.0-4.8); ABS Nucleated RBC 0.01 10^3/ul; Eosinophil % 0.4 %; Hematocrit 41.6 % (35-45); Hemoglobin 14.3 g/dL (11.5-14.3); Lymphocyte % 6.8 %; Mean Corpuscular Hemoglobin 31.7 pg (27-33); Mean Corpuscular Hgb Conc 34.3 g/dL (31-36); Mean Corpuscular Volume 92.5 fL (80-97); Mean Platelet Volume 9.9 fL (7.5-11.2); Nucleated Red Blood Cells % 0.1 %/100WBC (0.0-0.8); Platelet Count 231 10^3/uL (150-450); Red Cell Distribution Width 13.8 % (12-17); White Blood Count 19.4 10^3/uL (3.8-11.8)
[2024-09-24 06:57] LABS: Urine Benzodiazepine Screen None Detected (None Detect); Urine Opiates Screen None Detected (None Detect)
[2024-09-24] MEDS ORDERED: Sodium Citrate/Citric Acid LIQ 15 ML UDC PO PRN (07:02)
[2024-09-24] MEDS ORDERED: Phenylephrine 40 mcg/mL 10mL (400mcg) SYRINGE IV PUSH PRN (07:02)
[2024-09-24 07:07] LABS: Urine Cannabinoids Screen None Detected (None Detect)
[2024-09-24] MEDS: Phenylephrine 40 mcg/mL 10mL (400mcg) SYRINGE IV PUSH PRN (07:15)
[2024-09-24] MEDS: Lactated Ringers 1000 ml BAG 1,000 ML IV SCH (07:16)
[2024-09-24] MEDS: Oxytocin in LR 20,000 MILLI.UNIT/1,000 ML BAG IV SCH (08:20)
[2024-09-24] MEDS ORDERED: Lactated Ringers 1000 ml BAG 1,000 ML IV SCH (09:00)
[2024-09-24] MEDS: Witch Hazel PAD JAR TOPICAL PRN (11:00)
[2024-09-24] MEDS: Dibucaine 1% OINT 28.35 GM TUBE PR PRN (11:00)
[2024-09-24] MEDS: EPINEPHrine SULFITE FREE 1 MG/ML ONE (15:00)
[2024-09-24] MEDS: Phenylephrine 40 mcg/mL 10mL (400mcg) SYRINGE ONE (15:00)
[2024-09-24] MEDS: Oxytocin in LR 20,000 MILLI.UNIT/1,000 ML BAG IV ONE (15:00)
[2024-09-25 06:53] LABS: ABS Eosinophils 0.1 10^3/uL (0.0-0.5); ABS Lymphocytes 1.6 10^3/uL (1.0-4.8); ABS Monocytes 0.8 10^3/uL (0.0-0.9); ABS Neutrophils 11.6 10^3/uL (1.5-7.6); Hematocrit 36.9 % (35-45); Hemoglobin 12.6 g/dL (11.5-14.3); Lymphocyte % 11.6 %; Mean Corpuscular Hemoglobin 32.1 pg (27-33); Mean Corpuscular Hgb Conc 34.3 g/dL (31-36); Mean Corpuscular Volume 93.5 fL (80-97); Mean Platelet Volume 9.3 fL (7.5-11.2); Platelet Count 192 10^3/uL (150-450); Red Blood Count 3.94 10^6/uL (3.63-4.92); Red Cell Distribution Width 13.5 % (12-17); White Blood Count 14.2 10^3/uL (3.8-11.8)
[2024-09-25 08:13] VITALS: BP 94/58
[2024-09-25] MEDS: RHO D Immune Globulin (HUMAN) 300 MCG = 1,500 I.U. INJ IM PRN (08:23)
== END 2024-09-25 15:39 | disposition home or self-care (01) | DRG 560 ==
LOC: MCHOBOUT 05:20 → MCHOB 06:06
PROVIDERS: ADMIT Midwife; ATTEND Midwife